=== PATIENT | male | born 1945 | race Caucasian/White ===

== ENCOUNTER 2019-04-21 08:02 | Outpatient (CLI) | payer MEDICARE ==
[2019-04-21] VITALS (9 sets, daily range): BP systolic 123–140; BP diastolic 66–84
[~2019-04-21] VITALS: Ht 170.2 cm; Wt 93.9 kg
[2019-04-21] MEDS ORDERED: nitroGLYCERIN 0.4mg SUBLingual tab SL PRN (09:05)
[2019-04-21] MEDS ORDERED: aminophylline 250mg/10ml inj. IV PRN (09:05)
[2019-04-21] MEDS ORDERED: metoprolol tartrate 1mg/ml inj IV PRN (09:05)
[2019-04-21] MEDS ORDERED: regadenoson 0.4mg/5ml syringe IV PRN (09:05)
== END 2019-04-21 23:59 | disposition home or self-care (01) ==
LOC: RAD 08:02
PROVIDERS: ATTEND Internal Medicine Interventional Cardiology
DX: Z01.810 Encounter for preprocedural cardiovascular examination (principal); R06.02 Shortness of breath; R94.31 Abnormal electrocardiogram [ECG] [EKG]
CPT/HCPCS: 78452; 93017; A9500; J2785